=== PATIENT | female | born 1965 | race African-American/Black ===

== ENCOUNTER 2018-07-29 15:00 | Outpatient (CLI) | payer OTHER | END 2018-07-29 15:01 | disposition home or self-care (01) | LOC: BICMAMMO 15:00 | PROVIDERS: ATTEND Family Medicine | DX: Z12.31 Encounter for screening mammogram for malignant neoplasm of breast (principal) | CPT/HCPCS: 77063; 77067 ==

== ENCOUNTER 2019-04-05 14:19 | Outpatient (CLI) | payer OTHER ==
[2019-04-05 16:03] LABS: #Eosinphils 0.1 thou/uL (0.0-0.7); #Lymphocytes 1.8 thou/uL (1.20-3.40); #Monocytes 0.6 thou/uL (0.11-0.59); #Neutrophils 3.2 thou/uL (1.40-6.50); %Basophils 0.3 % (0.0-1.0); %Eosinophils 1.4 % (0.0-10.0); %Lymphocytes 31.2 % (21.0-51.0); %Monocytes 10.2 % (0.0-10.0); Hemoglobin 11.9 g/dL (12.0-16.0); Hypochromia SLIGHT = 6-15 cells (100X) (0-5/hpf); MDiff Complete? YES; Mean Corpuscular HGB CONC 30.5 g/dL (32.0-36.0); Mean Corpuscular Hemoglobin 22.7 pg (27.0-31.0); Mean Corpuscular Volume 74.6 fL (78.0-98.0); Mean Platelet Volume 9.4 fL (7.4-10.4); Microcytosis SLIGHT = 6-15 cells (100X) (0-5/hpf); Platelet Count 196 thou/uL (130-400); Platelet Morphology Comment Appears Adequate; RBC Distribution Width 13.7 % (11.5-14.5); Red Blood Cell (RBC) Count 5.24 mill/uL (4.20-5.40); White Blood Cell (WBC) Count 5.6 thou/uL (4.8-10.8)
[2019-04-05 16:06] LABS: ALT (SGPT) 28 U/L (8-55); AST (SGOT) 32 U/L (5-34); Albumin 4.1 g/dL (3.5-5.0); Alkaline Phosphatase 77 U/L (40-150); Anion Gap 13 mmol/L (10-20); BUN (Urea Nitrogen) 15 mg/dL (9.8-20.1); Bilirubin, Total 0.2 mg/dL (0.2-1.2); Calc. Creatinine Clearance 0 mL/min (70-130); Calcium 9.6 mg/dL (7.8-10.44); Carbon Dioxide 27 mmol/L (22-29); Chloride 103 mmol/L (98-107); Estimated GFR-MDRD 87; Globulin 2.9 g/dL (2.4-3.5); Glucose 89 mg/dL (70-105); Potassium 3.6 mmol/L (3.5-5.1); Sodium 139 mmol/L (136-145)
== END 2019-04-05 14:20 | disposition home or self-care (01) ==
LOC: LABBT 14:19
PROVIDERS: ATTEND Surgery
DX: Z01.818 Encounter for other preprocedural examination (principal); K43.9 Ventral hernia without obstruction or gangrene
CPT/HCPCS: 80053; 85025; 93005; 93010

== ENCOUNTER 2019-04-09 06:01 | Day surgery (SDC) | payer OTHER ==
[2019-04-05 14:47] VITALS: BMI 60.4
[2019-04-09] MEDS ORDERED: ceFAZolin Sodium (SDC) 2 GM/100 ML BAG ONE (06:10)
[2019-04-09] MEDS ORDERED: Bupivacaine/Epinephrine 0.25% 30 ML VIAL ONE (07:12)
[2019-04-09] MEDS ORDERED: Fentanyl 250 MCG/5 ML VIAL ONE (07:13)
[2019-04-09] MEDS ORDERED: Fentanyl 100 MCG/2 ML VIAL ONE (09:17)
[2019-04-09] MEDS ORDERED: Promethazine HCl 25 MG/ML VIAL ONE (10:35)
--- NOTE | 2019-04-09 12:25 | HP ---
CHIEF COMPLAINT: Ventral hernia. HISTORY OF PRESENT ILLNESS: The patient is a 53-year-old female, who has an enlarging and painful epigastric hernia, here for repair. PAST MEDICAL HISTORY: Hypertension, diabetes, anemia, hyperlipidemia, morbid obesity, and venous insufficiency. PAST SURGICAL HISTORY: She has had an ovarian cystectomy, tubal ligation, and hysterectomy. MEDICATIONS: Centrum, ferrous gluconate, Lipitor, metformin, losartan, and hydrochlorothiazide. ALLERGIES: SHE HAS NO KNOWN DRUG ALLERGIES. FAMILY HISTORY: Diabetes and Parkinson disease. SOCIAL HISTORY: She is . No tobacco. No alcohol. PHYSICAL EXAMINATION: VITAL SIGNS: : She has a BMI of 55 with a height of 65 and weight of 331. GENERAL: She is a morbidly obese female, in no apparent distress. HEENT: Unremarkable. LUNGS: Clear. HEART: Regular rate and rhythm. ABDOMEN: She has an 8-cm epigastric hernia, partially reducible. EXTREMITIES: Good pulses. No pedal edema. ASSESSMENT: Ventral hernia. PLAN: Laparoscopic ventral hernia repair with mesh. CONSENT: I have discussed planned procedure as well as risk of bleeding, infection, injury to bowel, and recurrence of hernia. She understands and gives informed consent. Job ID: [id number]
--- NOTE | 2019-04-09 12:33 | PRG ---
DATE OF SERVICE: 04/09/2019 The patient was scheduled for a laparoscopic ventral hernia repair today. Unfortunately, Anesthesia was unable to intubate the patient due to redundant tissue in anterior location of her airway. I tried multiple times including the GlideScope, so they were able to get LMA in barely and keep her ventilated to get rid of her muscle relaxant. For this reason, her surgery was canceled. The plan is for her to be evaluated by ENT prior to any attempted further repair. Job ID: [id number]
[2019-04-09] MEDS ORDERED: PROPOFOL 200 MG/20 ML VIAL ONE (13:58)
[2019-04-09] MEDS ORDERED: Glycopyrrolate 0.2 MG/ML 5 ML SYRINGE ONE (13:58)
[2019-04-09] MEDS ORDERED: Rocuronium Bromide 10 MG/ML (10ML VIAL) ONE (13:58)
[2019-04-09] MEDS ORDERED: Dexamethasone 20 MG/5 ML VIAL ONE (13:58)
[2019-04-09] MEDS ORDERED: Ondansetron PF 4 MG/2 ML Vial ONE (13:58)
== END 2019-04-09 12:24 | disposition home or self-care (01) ==
LOC: SDC 06:01 → EEVIPCON 15:00
PROVIDERS: ATTEND Surgery
DX: K43.9 Ventral hernia without obstruction or gangrene (principal); Z53.09 Procedure and treatment not carried out because of other contraindication; I10 Essential (primary) hypertension; E11.9 Type 2 diabetes mellitus without complications; E78.5 Hyperlipidemia, unspecified; D64.9 Anemia, unspecified; E66.01 Morbid (severe) obesity due to excess calories; Z68.43 Body mass index [BMI] 50.0-59.9, adult
CPT/HCPCS: J0690; J1100; J2405; J2550; J2704; J3010

== ENCOUNTER 2019-04-14 09:08 | Inpatient (IN) | payer OTHER ==
[2019-04-14] MEDS ORDERED: Dexmedetomidine 200 MCG/2 ML VIAL ONE (09:41)
[2019-04-14] MEDS ORDERED: Lidocaine 4% Topical Sol 50 ML BOT ONE (09:45)
[2019-04-14] MEDS ORDERED: Lidocaine 2% Jelly 5 ML TUBE ONE ×2 (09:45→12:10)
[2019-04-14] MEDS ORDERED: ceFAZolin Sodium (SDC) 2 GM/100 ML BAG ONE (10:05)
[2019-04-14] MEDS ORDERED: Lidocaine 2% PF 5 ML VIAL ONE (10:05)
[2019-04-14] MEDS ORDERED: Albuterol Sulfate 2.5 mg/3 ml Neb ONE (10:15)
[2019-04-14] MEDS ORDERED: Bupivacaine/Epinephrine 0.25% 30 ML VIAL ONE (11:30)
[2019-04-14] MEDS ORDERED: Fentanyl 100 MCG/2 ML VIAL ONE ×3 (11:37→19:40)
[2019-04-14] MEDS ORDERED: Midazolam HCl 2 mg/2 ml Vial ONE (11:37)
[2019-04-14] MEDS ORDERED: Oxymetazoline HCl 0.05% ( 15 ML ) ONE (12:10)
[2019-04-14] MEDS ORDERED: SUGAMMADEX SODIUM 200 MG/2 ML VIAL ONE (14:08)
[2019-04-14] MEDS ORDERED: Dextrose 50% Abboject 50 ML SYRINGE SLOW IVP PRN (14:20)
[2019-04-14] MEDS ORDERED: HYDROcodone/Acetaminophen 10/325 mg Tablet PO PRN (14:20)
[2019-04-14] MEDS ORDERED: Dextrose 5% in Water 1,000 ML IV PRN (14:20)
[2019-04-14] MEDS ORDERED: Promethazine HCl 25 MG/ML VIAL IM PRN (14:20)
[2019-04-14] MEDS ORDERED: Insulin Regular 300 UNITS/3 ML VIAL SC PRN (14:20)
[2019-04-14] MEDS ORDERED: Ondansetron PF 4 MG/2 ML Vial IVP PRN (14:20)
[2019-04-14] MEDS ORDERED: Morphine 4 MG/ML VIAL SLOW IVP PRN ×2 (14:20)
[2019-04-14] MEDS ORDERED: hydrALAZINE 20 MG/ML VIAL SLOW IVP PRN (14:20)
--- NOTE | 2019-04-14 15:30 | OP ---
DATE OF PROCEDURE: 04/14/2019 PREOPERATIVE DIAGNOSIS: Ventral hernia with incarceration. PROCEDURE PERFORMED: Laparoscopic ventral hernia repair with mesh. INDICATIONS: A 53-year-old female with painful epigastric hernia that is very difficult to reduce. She has been to the emergency room with pain. FINDINGS: Incarcerated omentum, 4 cm defect. The patient was extremely difficulty intubation. There had a trouble even with awake fiberoptic intubation. Had to have Ear, Nose, and Throat physician come in to help with intubation. DESCRIPTION OF PROCEDURE: After informed consent was obtained, the patient was taken to the operating room. Under very difficult circumstances despite awake fiberoptic intubation, required Dr. Garcia from ENT to come in to actually get the patient intubated. Once intubated, underwent general endotracheal anesthesia, placed in supine position. Abdomen and flank prepped and draped in the usual fashion. Local anesthesia infiltrated subcutaneously and a 12-mm incision was performed on the right lateral abdomen. A Veress needle inserted. Drop test performed. Pneumoperitoneum was created to a volume of 2 L of carbon dioxide. Utilizing a bladeless 12-mm trocar and 0-degree laparoscope, direct visual entry in the abdominal cavity was performed. Pneumoperitoneum was then created to a pressure of 15 mmHg, and under direct vision, two 5-mm ports were placed in the right lateral abdomen. Carefully, the omentum was reduced from the defect. The defect was measured at 4 cm. Defect closed with a #1 Strattice mesh transversely. Then, a 6 x 8-inch Proceed lightweight mesh was fashioned with 0 Ethibond in 4 quadrants. It was hydrated, rolled, inserted intra-abdominally, then unrolled. Then, the sutures were grasped individually with the GraNee needle and brought up to position the mesh optimally. These were tied down. The mesh was further secured to the abdominal wall with the SecureStrap Tacker. Hemostasis assured. Trocars were removed and the repair was done with a reduced pressure of 12 mmHg. Then, the skin was closed with interrupted 4-0 Rapide. Dermabond applied. The patient tolerated the procedure well, transferred to Recovery in good condition. Sponge and needle count verified correct x2. Job ID: [id number]
[2019-04-14 15:41] VITALS: BP 113/81
[2019-04-14] MEDS ORDERED: Dexamethasone 20 MG/5 ML VIAL ONE (16:28)
[2019-04-14] MEDS ORDERED: Glycopyrrolate 0.2 MG/ML 5 ML SYRINGE ONE (16:28)
[2019-04-14] MEDS ORDERED: Ondansetron PF 4 MG/2 ML Vial ONE (16:28)
[2019-04-14] MEDS ORDERED: Ketorolac Tromethamine 30 MG/ML VIAL ONE (16:28)
[2019-04-14] MEDS ORDERED: Rocuronium Bromide 10 MG/ML (10ML VIAL) ONE (16:28)
[2019-04-14] MEDS ORDERED: Propofol 1,000 MG/100 ML VIAL IV ONE (16:38)
[2019-04-14 17:58] LABS: Actual Bicarbonate (HCO3a) 22.3 mEq/L (22-28); Analyzer IN Cardio OR; Base Excess (BEa) -3.3 mEq/L (-2.0 to +3.0); CO2 Tension 41.9 mmHg (35.0-45.0); Calcium, Ionized 1.14 mmol/L (1.12-1.30); Carboxyhemoglobin (COHb) 0.5 gm% (0.0-3.0); Hemoglobin (Hb) 12.9 g/dL (12.0-16.0); Potassium - ABG Lab 3.17 mmol/L (3.70-5.30); pH, Arterial 7.34 (7.35-7.45)
[2019-04-14] MEDS ORDERED: cefOXitin 2 GM in Sodium Chloride 0.9% 100 ML IVPB SCH (18:00)
[2019-04-14 18:04] LABS: ALV-art Gradient 169.825 (0-20); Puncture Site RRA
[2019-04-14] MEDS ORDERED: Promethazine HCl 25 MG/ML VIAL ONE (19:28)
[2019-04-14] MEDS: Famotidine/PF 20 mg/2ml Vial SLOW IVP SCH (23:07)
[2019-04-14] MEDS: Sodium Chloride 0.9% 1,000 ML IV SCH (23:07)
[2019-04-14] MEDS: Ketorolac Tromethamine 30 MG/ML VIAL IVP SCH ×2 (23:07→23:21)
[2019-04-14] MEDS: Famotidine 20 MG TAB PO SCH (23:16)
[2019-04-14] MEDS: HYDROcodone/Acetaminophen 10/325 mg Tablet PO PRN (23:27)
[2019-04-14] MEDS: cefOXitin 2 GM in Sodium Chloride 0.9% 100 ML IVPB SCH (23:29)
[2019-04-14 23:31] VITALS: BMI 52.9
[2019-04-15] MEDS: Sodium Chloride 0.9% 1,000 ML IV SCH (00:35)
--- NOTE | 2019-04-15 03:32 | CON ---
DATE OF CONSULTATION: HISTORY OF PRESENT ILLNESS: Ms. Barcenas is a 53-year-old female, in for elective herniorrhaphy today. She was a difficult intubation requiring assistance from Ear, Nose, and Throat Surgery. She was nasally intubated. I was consulted to see her in the post anesthesia care unit. She was still intubated, and awake when I saw her. She denies ever having been told she has sleep apnea. Per my discussion with Dr. Eid, her intubation was not traumatic. PAST MEDICAL HISTORY: Remarkable for; 1. Epigastric hernia. 2. Hypertension. 3. Diabetes. 4. Lipid disorder. 5. Obesity. 6. Venous insufficiency. 7. Ovarian cystectomy. 8. Tubal ligation. 9. Status post hysterectomy. MEDICATIONS: Prior to admission, she was on iron, multivitamins, Lipitor, metformin, losartan, and hydrochlorothiazide. ALLERGIES: SHE HAS NO DRUG ALLERGIES. FAMILY HISTORY: Positive for diabetes. SOCIAL HISTORY: She is a nonsmoker, nondrinker, nondrug user. REVIEW OF SYSTEMS: Not obtainable. PHYSICAL EXAMINATION: She had BMI of 55. VITAL SIGNS: Stable. She is not tachycardic. Her minute volume was between 6 and 8 L a minute. HEENT: Unremarkable. NECK: Unremarkable. LUNGS: Clear. HEART: Regular rhythm. S1 and S2 are normal. ABDOMEN: Bandaged. EXTREMITIES: Without clubbing, cyanosis, or edema. LABORATORY DATA: PH 734, CO2 41, PO2 63. A week ago, her electrolytes were normal. A week ago, her CBC was normal with the exception of a hemoglobin of 11.9 with an MCV of 74. It is unclear whether or not she has ever had a colonoscopy. IMPRESSION: Difficult intubation secondary to obesity. She passed a spontaneous breathing trial and a leak test. She subsequently was extubated without any postextubation stridor or distress. She will be observed overnight in the Critical Care Unit. We will follow while she is in the hospital. She may be a candidate actually to go home tomorrow afternoon. TIME SPENT: This is a 70-minute consult, 50% of the time was spent on the unit coordinating care. Job ID: [id number]
[2019-04-15 04:08] LABS: Anion Gap 11 mmol/L (10-20); BUN (Urea Nitrogen) 15 mg/dL (9.8-20.1); Calc. Creatinine Clearance 175 mL/min (70-130); Calcium 9.2 mg/dL (7.8-10.44); Carbon Dioxide 26 mmol/L (22-29); Chloride 104 mmol/L (98-107); Estimated GFR-MDRD 87; Glucose 157 mg/dL (70-105); Potassium 4.6 mmol/L (3.5-5.1); Sodium 136 mmol/L (136-145)
[2019-04-15 04:21] LABS: Band 1 % (5-11); Lymphocytes 3 % (21-51); MDiff Complete? YES; Mean Corpuscular HGB CONC 31.7 g/dL (32.0-36.0); Mean Corpuscular Hemoglobin 23.5 pg (27.0-31.0); Mean Corpuscular Volume 74.1 fL (78.0-98.0); Mean Platelet Volume 9.3 fL (7.4-10.4); Monocytes 1 % (0-10); Neutrophil 95 % (42-75); Platelet Count 192 thou/uL (130-400); Platelet Morphology Comment Appears Adequate; RBC Distribution Width 13.9 % (11.5-14.5); Red Blood Cell (RBC) Count 5.12 mill/uL (4.20-5.40); White Blood Cell (WBC) Count 10.3 thou/uL (4.8-10.8)
[2019-04-15] MEDS: Ketorolac Tromethamine 30 MG/ML VIAL IVP SCH (05:20)
[2019-04-15] MEDS: HYDROcodone/Acetaminophen 10/325 mg Tablet PO PRN (05:21)
[2019-04-15] MEDS ORDERED: Ciprofloxacin 0.2% Otic 1 DROP CON ONE (07:10)
[2019-04-15] MEDS: Famotidine/PF 20 mg/2ml Vial SLOW IVP SCH (08:29)
[2019-04-15] MEDS: cefOXitin 2 GM in Sodium Chloride 0.9% 100 ML IVPB SCH (08:29)
[2019-04-15] MEDS: Famotidine 20 MG TAB PO SCH (08:30)
[2019-04-15 08:35] VITALS: TEMP 97.6
[2019-04-15] MEDS ORDERED: Enoxaparin Sodium 40 MG/0.4 ML SYRINGE SC SCH (09:00)
--- NOTE | 2019-04-15 11:11 | DIS ---
DATE OF ADMISSION: 04/14/2019 DATE OF DISCHARGE: 04/15/2019 DISCHARGE DIAGNOSES: 1. Ventral hernia. 2. Very difficult airway issues. PROCEDURES DURING ADMISSION: Laparoscopic ventral hernia repair with mesh, attempted fiberoptic intubation. HOSPITAL COURSE: The patient was admitted, taken to the operating room, where she underwent very difficult intubation, required fiberoptics, required ENT to come in. Eventually, she was able to get intubated and underwent a laparoscopic ventral hernia repair with mesh. Postprocedure, she was observed in the ICU due to her very difficult airway, but she did fine. She was extubated about 6 hours postprocedure and has done well since her pain is controlled on p.o. medications. She is tolerating liquids well. She is afebrile. She is discharged home on hydrocodone and Zofran. She will follow up with me in 2 weeks. Job ID: [id number]
== END 2019-04-15 10:15 | disposition home or self-care (01) | DRG 354 ==
LOC: SDC 09:08 → CCU 19:38
PROVIDERS: ADMIT Surgery; ATTEND Surgery
PROC: 0WUF4JZ Supplement Abdominal Wall with Synthetic Substitute, Percutaneous Endoscopic Approach (ICD-10-PCS; principal; 2019-04-14)
DX: K43.6 Other and unspecified ventral hernia with obstruction, without gangrene (principal); Z68.43 Body mass index [BMI] 50.0-59.9, adult; I10 Essential (primary) hypertension; E11.9 Type 2 diabetes mellitus without complications; E78.5 Hyperlipidemia, unspecified; E66.9 Obesity, unspecified; Z98.51 Tubal ligation status; Z90.710 Acquired absence of both cervix and uterus; Z79.84 Long term (current) use of oral hypoglycemic drugs; Z79.899 Other long term (current) drug therapy
CPT/HCPCS: 36415; 80048; 82805; 85025; 94002; C1781; J0131; J0690; J0694; J1100; J1650; J1885; J2001; J2250; J2405; J2550; J2704; J3010; J3490; J7611

== ENCOUNTER 2019-09-06 13:55 | Outpatient (CLI) | payer OTHER ==
--- NOTE | 2019-09-06 15:18 | MMO ---
Bilateral MAMMO Bilat Screen [facility]. CLINICAL HISTORY: Patient is 53 years old and is seen for screening. The patient has no family history of breast cancer. The patient has no personal history of cancer. VIEWS: The views performed were: bilateral craniocaudal with tomosynthesis and bilateral mediolateral oblique with tomosynthesis. FILMS COMPARED: The present examination has been compared to prior imaging studies performed at [facility] on 08/06/2013, 07/21/2017 and 07/29/2018, and at [facility] on 03/14/2016. This study has been interpreted with the assistance of computer-aided detection. MAMMOGRAM FINDINGS: The breasts are almost entirely fat. There are no suspicious masses, suspicious calcifications, or new areas of architectural distortion. IMPRESSION: THERE IS NO MAMMOGRAPHIC EVIDENCE OF MALIGNANCY. A ROUTINE FOLLOW-UP MAMMOGRAM IN 1 YEAR IS RECOMMENDED. THE RESULTS OF THIS EXAM WERE SENT TO THE PATIENT. ACR BI-RADS Category 1 - Negative MAMMOGRAPHY NOTE: 1. A negative mammogram report should not delay a biopsy if a dominant of clinically suspicious mass is present. 2. Approximately 10% to 15% of breast cancers are not detected by mammography. 3. Adenosis and dense breasts may obscure an underlying neoplasm. Reported by: PATRICIA ANAND MD Electonically Signed: [id number]
== END 2019-09-06 13:56 | disposition home or self-care (01) ==
LOC: BICMAMMO 13:55
PROVIDERS: ATTEND Family Medicine
DX: Z12.31 Encounter for screening mammogram for malignant neoplasm of breast (principal)
CPT/HCPCS: 77063; 77067

== ENCOUNTER 2019-10-10 05:14 | Emergency (ER) | payer OTHER ==
[2019-10-10] MEDS ORDERED: Acetaminophen 500 MG TAB ONE (05:39)
== END 2019-10-10 06:03 | disposition home or self-care (01) ==
LOC: ERS 05:14
DX: J20.9 Acute bronchitis, unspecified (principal); E78.5 Hyperlipidemia, unspecified; I10 Essential (primary) hypertension; E11.9 Type 2 diabetes mellitus without complications; Z79.84 Long term (current) use of oral hypoglycemic drugs; Z79.899 Other long term (current) drug therapy
CPT/HCPCS: 99283

== ENCOUNTER 2020-01-28 15:52 | Outpatient (CLI) | payer OTHER ==
--- NOTE | 2020-01-28 16:11 | ULT ---
ULTRASOUND DOPPLER DUPLEX VENOUS RIGHT LOWER EXTREMITY: DATE: 01/28/2020 HISTORY: 54-year-old female with right lower extremity pain and edema TECHNIQUE: Grayscale, color-flow, and spectral analysis, of major veins of right lower extremity. FINDINGS: There is demonstration of blood flow with normal compressibility, of the right common femoral, profun da femoral, greater saphenous, femoral, popliteal, and posterior tibial, veins. IMPRESSION: Negative. No deep venous thrombosis of right lower extremity.
== END 2020-01-28 15:53 | disposition home or self-care (01) ==
LOC: SCSULT 15:52
PROVIDERS: ATTEND Family Medicine
DX: M79.604 Pain in right leg (principal)

== ENCOUNTER 2020-07-01 09:42 | Emergency (ER) | payer OTHER | END 2020-07-01 11:40 | disposition home or self-care (01) | LOC: ERS 09:42 | DX: L03.311 Cellulitis of abdominal wall (principal); E11.9 Type 2 diabetes mellitus without complications; E78.5 Hyperlipidemia, unspecified; I10 Essential (primary) hypertension; G43.909 Migraine, unspecified, not intractable, without status migrainosus; Z79.899 Other long term (current) drug therapy; Z79.84 Long term (current) use of oral hypoglycemic drugs | CPT/HCPCS: 99283 ==

== ENCOUNTER 2020-09-10 04:56 | Emergency (ER) | payer OTHER ==
[2020-09-10 05:38] LABS: Hemoglobin 12.5 g/dL (12.0-16.0); Mean Corpuscular HGB CONC 30.9 g/dL (32.0-36.0); Mean Corpuscular Hemoglobin 22.9 pg (27.0-31.0); Mean Platelet Volume 9.2 fL (7.4-10.4); Platelet Count 181 thou/uL (130-400); RBC Distribution Width 13.7 % (11.5-14.5); Red Blood Cell (RBC) Count 5.46 mill/uL (4.20-5.40); White Blood Cell (WBC) Count 3.5 thou/uL (4.8-10.8)
[2020-09-10 05:55] LABS: Lymphocytes 46 % (21-51); MDiff Complete? YES; Monocytes 16 % (0-10); Neutrophil 38 % (42-75); Platelet Morphology Comment Appears Adequate; RBC Morphology Normal
[2020-09-10 06:00] LABS: ALT (SGPT) 27 U/L (8-55); AST (SGOT) 33 U/L (5-34); Albumin 3.8 g/dL (3.5-5.0); Alkaline Phosphatase 79 U/L (40-110); Anion Gap 13 mmol/L (10-20); BUN (Urea Nitrogen) 15 mg/dL (9.8-20.1); Bilirubin, Total 0.2 mg/dL (0.2-1.2); Calc. Creatinine Clearance 0 mL/min (70-130); Calcium 8.8 mg/dL (7.8-10.44); Carbon Dioxide 29 mmol/L (22-29); Chloride 101 mmol/L (98-107); Glucose 102 mg/dL (70-105); Potassium 3.6 mmol/L (3.5-5.1); Protein, Total 6.8 g/dL (6.0-8.3); Sodium 139 mmol/L (136-145)
[2020-09-10] MEDS ORDERED: Acetaminophen 500 MG TAB ONE (06:09)
[2020-09-10 08:30] LABS: Bilirubin Negative (Negative); Blood, Urine Negative (Negative); Clarity Turbid (Clear); Glucose, Urine (Dipstick) Normal (Negative); Ketone, Urine Negative (Negative); Leukocyte Negative Leu/uL (Negative); Nitrite Negative (Negative); Protein, Urine (Dipstick) 20 mg/dL (Neg-Trace); Urobilinogen Normal mg/dL (Less than 2); pH, Urine 5.5 (5.0-9.0)
[2020-09-10 12:43] LABS: SARS-CoV-2 MS2 Positive; SARS-CoV-2 N Gene Positive; SARS-CoV-2 S Gene Positive; SARS-CoV-2 by NAA DETECTED (NotDetected); SARS-CoV-2 orf1ab Positive
== END 2020-09-10 08:49 | disposition home or self-care (01) ==
LOC: ERS 04:56
DX: U07.1 COVID-19 (principal); Z79.899 Other long term (current) drug therapy; Z79.84 Long term (current) use of oral hypoglycemic drugs; E11.9 Type 2 diabetes mellitus without complications; E78.5 Hyperlipidemia, unspecified; I10 Essential (primary) hypertension; E11.40 Type 2 diabetes mellitus with diabetic neuropathy, unspecified
CPT/HCPCS: 36415; 80053; 81003; 83880; 84484; 85025; 87635; 93005; U0003

== ENCOUNTER 2020-09-17 15:41 | Emergency (ER) | payer BC, OTHER ==
[2020-09-17] MEDS ORDERED: HYDROcodone/Acetaminophen 5/325 mg Tablet ONE (16:13)
[2020-09-17] MEDS ORDERED: Ondansetron ODT 4 MG TAB ONE (16:14)
== END 2020-09-17 17:33 | disposition home or self-care (01) ==
LOC: ERS 15:41
DX: U07.1 COVID-19 (principal); K04.7 Periapical abscess without sinus; E11.9 Type 2 diabetes mellitus without complications; E78.5 Hyperlipidemia, unspecified; I10 Essential (primary) hypertension; E11.40 Type 2 diabetes mellitus with diabetic neuropathy, unspecified; Z79.84 Long term (current) use of oral hypoglycemic drugs; Z79.899 Other long term (current) drug therapy
CPT/HCPCS: 99283; Q0162

== ENCOUNTER 2021-01-25 10:53 | Outpatient (CLI) | payer BC | END 2021-01-25 10:54 | disposition home or self-care (01) | LOC: BICMAMMO 10:53 | PROVIDERS: ATTEND Family Medicine | DX: Z12.31 Encounter for screening mammogram for malignant neoplasm of breast (principal) | CPT/HCPCS: 77063; 77067 ==

== ENCOUNTER 2021-03-16 22:53 | Emergency (ER) | payer BC ==
[2021-03-16] MEDS ORDERED: Ketorolac Tromethamine 30 MG/ML VIAL ONE (23:35)
[2021-03-17 00:06] LABS: Hemoglobin 12.9 g/dL (12.0-16.0); Mean Corpuscular HGB CONC 34.1 g/dL (32.0-36.0); Mean Corpuscular Volume 73.1 fL (78.0-98.0); Mean Platelet Volume 8.7 fL (7.4-10.4); Platelet Count 230 thou/uL (130-400); RBC Distribution Width 13.6 % (11.5-14.5); Red Blood Cell (RBC) Count 5.16 mill/uL (4.20-5.40); White Blood Cell (WBC) Count 5.6 thou/uL (4.8-10.8)
[2021-03-17 00:21] LABS: #Eosinphils 0.1 thou/uL (0.0-0.7); #Lymphocytes 1.8 thou/uL (1.20-3.40); #Monocytes 0.6 thou/uL (0.11-0.59); #Neutrophils 3.1 thou/uL (1.40-6.50); %Basophils 0.2 % (0.0-1.0); %Eosinophils 1.2 % (0.0-10.0); %Monocytes 10.8 % (0.0-10.0); %Neutrophils 54.8 % (42.0-75.0); ALT (SGPT) 34 U/L (8-55); AST (SGOT) 42 U/L (5-34); Albumin 3.7 g/dL (3.5-5.0); Alkaline Phosphatase 88 U/L (40-110); Anion Gap 15 mmol/L (10-20); BUN (Urea Nitrogen) 20 mg/dL (9.8-20.1); Bilirubin, Total 0.2 mg/dL (0.2-1.2); Calc. Creatinine Clearance 0 mL/min (70-130); Calcium 9.4 mg/dL (7.8-10.44); Carbon Dioxide 28 mmol/L (22-29); Chloride 98 mmol/L (98-107); Globulin 3.6 g/dL (2.4-3.5); Glucose 122 mg/dL (70-105); Lipase 31 U/L (8-78); Potassium 3.2 mmol/L (3.5-5.1); Protein, Total 7.3 g/dL (6.0-8.3); Sodium 138 mmol/L (136-145)
[2021-03-17 00:25] LABS: Bacteria/HPF 1+ HPF (None Seen); Bilirubin Negative (Negative); Blood, Urine Negative (Negative); Clarity Clear (Clear); Glucose, Urine (Dipstick) Normal (Negative); Ketone, Urine Negative (Negative); Leukocyte 75 Leu/uL (Negative); Nitrite Negative (Negative); Pregnancy Test - Urine (BHCG) Negative (Negative); Pregu Control Background? CLEAR/WHITE (CLR/WHITE); Pregu Control Bar Appear? YES (CONTROL BAR); Protein, Urine (Dipstick) 10 mg/dL (Neg-Trace); RBC/HPF 0-3 HPF (0-3); Specific Gravity 1.026 (1.002-1.036); Specific Gravity, Urine 1.026 (1.002-1.036); Urobilinogen Normal mg/dL (Less than 2); pH, Urine 6.5 (5.0-9.0)
== END 2021-03-17 00:48 | disposition home or self-care (01) ==
LOC: ERS 22:53
DX: M54.6 Pain in thoracic spine (principal); R10.30 Lower abdominal pain, unspecified; R10.817 Generalized abdominal tenderness; E11.40 Type 2 diabetes mellitus with diabetic neuropathy, unspecified; E78.5 Hyperlipidemia, unspecified; I10 Essential (primary) hypertension; Z79.84 Long term (current) use of oral hypoglycemic drugs; Z79.899 Other long term (current) drug therapy
CPT/HCPCS: 36415; 71045; 80053; 81003; 81015; 81025; 83690; 85025; 93005; 96372; J1885

== ENCOUNTER 2021-10-12 14:19 | Outpatient (CLI) | payer BC, OTHER | END 2021-10-12 14:20 | disposition home or self-care (01) | LOC: BICCT 14:19 | PROVIDERS: ATTEND Family Medicine | DX: R10.30 Lower abdominal pain, unspecified (principal); K57.90 Diverticulosis of intestine, part unspecified, without perforation or abscess without bleeding; K43.9 Ventral hernia without obstruction or gangrene; K80.20 Calculus of gallbladder without cholecystitis without obstruction | CPT/HCPCS: 74177; 82565 ==

== ENCOUNTER 2022-01-28 11:00 | Outpatient (CLI) | payer OTHER | END 2022-01-28 11:01 | disposition home or self-care (01) | LOC: BICMAMMO 11:00 | PROVIDERS: ATTEND Family Medicine | DX: Z12.31 Encounter for screening mammogram for malignant neoplasm of breast (principal) | CPT/HCPCS: 77063; 77067 ==

== ENCOUNTER 2022-05-05 15:04 | Emergency (ER) | payer BC, OTHER ==
[~2022-05-05 15:04] MED LIST: Iopamidol-370 76% 500 ML 1 ML ONE
[2022-05-05] MEDS ORDERED: Ketorolac Tromethamine 30 MG/ML VIAL ONE (15:18)
[2022-05-05 16:14] LABS: #Eosinphils 0.1 thou/uL (0.0-0.7); #Lymphocytes 1.9 thou/uL (1.20-3.40); #Monocytes 0.6 thou/uL (0.11-0.59); #Neutrophils 3.9 thou/uL (1.40-6.50); %Basophils 0.1 % (0.0-1.0); %Eosinophils 1.5 % (0.0-10.0); %Lymphocytes 28.5 % (21.0-51.0); %Monocytes 9.6 % (0.0-10.0); %Neutrophils 60.2 % (42.0-75.0); Hemoglobin 12.9 g/dL (12.0-16.0); Mean Corpuscular HGB CONC 32.3 g/dL (32.0-36.0); Mean Corpuscular Hemoglobin 24.1 pg (27.0-31.0); Mean Corpuscular Volume 74.7 fL (78.0-98.0); Mean Platelet Volume 9.3 fL (7.4-10.4); Platelet Count 209 thou/uL (130-400); RBC Distribution Width 13.9 % (11.5-14.5); Red Blood Cell (RBC) Count 5.36 mill/uL (4.20-5.40); White Blood Cell (WBC) Count 6.5 thou/uL (4.8-10.8)
[2022-05-05 16:26] LABS: Hypochromia SLIGHT = 6-15 cells (100X) (0-5/hpf); MDiff Complete? YES; Microcytosis SLIGHT = 6-15 cells (100X) (0-5/hpf); Platelet Morphology Comment Appears Adequate
[2022-05-05 16:34] LABS: ALT (SGPT) 25 U/L (8-55); AST (SGOT) 28 U/L (5-34); Albumin 4.1 g/dL (3.5-5.0); Alkaline Phosphatase 100 U/L (40-110); Anion Gap 17 mmol/L (10-20); BUN (Urea Nitrogen) 20 mg/dL (9.8-20.1); Bilirubin, Total 0.2 mg/dL (0.2-1.2); Calc. Creatinine Clearance 0 mL/min (70-130); Calcium 9.8 mg/dL (7.8-10.44); Carbon Dioxide 28 mmol/L (22-29); Chloride 97 mmol/L (98-107); Estimated GFR 68; Globulin 3.6 g/dL (2.4-3.5); Glucose 96 mg/dL (70-105); Lipase 28 U/L (8-78); Potassium 3.2 mmol/L (3.5-5.1); Protein, Total 7.7 g/dL (6.0-8.3); Sodium 139 mmol/L (136-145)
[2022-05-05 16:38] LABS: Troponin I Less than 0.010 ng/mL (< 0.028)
[2022-05-05] MEDS ORDERED: Potassium Chloride 20 MEQ TAB ONE (17:14)
== END 2022-05-05 18:13 | disposition home or self-care (01) ==
LOC: ERS 15:04
DX: J06.9 Acute upper respiratory infection, unspecified (principal); K80.80 Other cholelithiasis without obstruction; E87.6 Hypokalemia; I10 Essential (primary) hypertension; E11.40 Type 2 diabetes mellitus with diabetic neuropathy, unspecified; E78.5 Hyperlipidemia, unspecified; Z20.822 Contact with and (suspected) exposure to COVID-19; Z79.84 Long term (current) use of oral hypoglycemic drugs; Z79.899 Other long term (current) drug therapy
CPT/HCPCS: 71045; 74177; 80053; 83690; 83880; 84484; 85025; 93005; 96374; J1885; Q9967; U0003; U0005

== ENCOUNTER 2022-06-25 06:52 | Emergency (ER) | payer OTHER | END 2022-06-25 08:50 | disposition home or self-care (01) | LOC: ERS 06:52 | DX: J20.9 Acute bronchitis, unspecified (principal); E11.40 Type 2 diabetes mellitus with diabetic neuropathy, unspecified; E78.5 Hyperlipidemia, unspecified; I10 Essential (primary) hypertension | CPT/HCPCS: 99283 ==

== ENCOUNTER 2024-10-25 10:04 | Emergency (ER) | payer SELFPAY | END 2024-10-25 12:15 | disposition home or self-care (01) | LOC: ERS 10:04 | DX: S91.111A Laceration without foreign body of right great toe without damage to nail, initial encounter (principal); E11.40 Type 2 diabetes mellitus with diabetic neuropathy, unspecified; I10 Essential (primary) hypertension; M25.562 Pain in left knee; M25.561 Pain in right knee; E11.9 Type 2 diabetes mellitus without complications; W01.0XXA Fall on same level from slipping, tripping and stumbling without subsequent striking against object, initial encounter | CPT/HCPCS: 99283 ==